=== PATIENT | male | born 1945 ===

== ENCOUNTER → 2017-11-02 | Outpatient (CLI) | payer OTHER ==
--- NOTE | 2017-11-02 14:30 | DIAGNOSTIC IMAGING REPORT ---
L KNEE 4 OR MORE CLINICAL HISTORY: LEFT KNEE PAIN COMPARISON STUDY: None. FINDINGS: 4 views of the left knee with an AP weightbearing view of the bilateral knees. No fracture or dislocation within the right or left knee. Trace left knee effusion. Small subchondral lucency at the patella. Tiny marginal osteophytes at the patella. IMPRESSION: 1. Trace left knee effusion. 2. Small subchondral lucency at the patella which could be due to subchondral cystic change in the setting of osteoarthritis or an osteochondral defect. Electronically signed by: Maxx Vieira M.D. 11/02/2017 2:29 PM Dictated Date/Time: 11/02/2017 2:27 PM
== END | disposition home or self-care (01) ==
LOC: C.RDSM 14:13
PROVIDERS: ATTEND Internal Medicine
DX: M25.562 Pain in left knee (principal)